=== PATIENT | female | born 1955 | race African-American/Black ===

== ENCOUNTER 2016-12-19 06:28 | Inpatient (IN) | payer OTHER ==
--- NOTE | ~2016-12-19 | HP ---
History And Physical [id number] [facility] [place]. [address] NAME: ZAHIRA GREENBERG : 51 STATUS : ADM IN [facility]#: [id number] AGE: 61 ADM/REG DATE : 12/19/16 MR#: [id number] REPORT SERV DATE: 12/19/16 DICTATED BY: PORSHA BECERRA DATE: 12/19/16 REPORT STATUS : Draft TRANSCRIBED BY: MODL DATE: 12/19/16 DATE OF ADMISSION: 12/19/2016 REASON FOR ADMISSION: Acute renal failure, MS, and cervical cord compression. HISTORY: This is a 61-year-old black female who has a history of MS since 2003 when she was first diagnosed. She grown up and lived in [place], [place], and moved down here in 2014. She is followed by Dr. Roma Finnegan, for her MS. She also had cervical spine arthritis and had been operated on several times for stenosis starting in 2001. She sees a neurosurgeon here Dr. Baltazar for her spinal stenosis. She came to the emergency room last week and had a creatinine of 0.97. She was given a Salazar catheter. Her cousin took it out after several days. She comes back now with a creatinine up to 4.82 and some difficulty emptying her bladder. She also complained of symptoms of increasing weakness in lower extremities, tingling and numbness in the thumb and index finger on the right side of her hands and also some numbness and tingling in the lateral fourth and fifth digits of both hands. She was seen initially by Dr. Luu in the emergency room. Apparently consult Neurology and started on 1 g of Solu-Medrol IV q.24 hours. I am asked to admit the patient to the hospital for possible MS flare. PAST MEDICAL HISTORY: She had a cervical cord injury and MRI does show compression of the cord at the C2-3 level. She had surgery at the C4-5 and C5-6 level as well. HOME MEDICATIONS: Include the following: Acetaminophen 650 mg q.8h p.r.n.; amantadine 100 mg p.o. b.i.d., though she is not sure why she is taking this; amlodipine 5 mg p.o. each morning; aspirin 81 mg p.o. daily; baclofen 10 mg p.o. b.i.d.; biotin one daily; diclofenac 1% gel, apply twice a day; furosemide 20 mg p.o. daily; potassium chloride 10 mEq p.o. daily; gabapentin 100 mg p.o. p.r.n.; multivitamins one a day; nitrofurantoin 100 mg p.o. b.i.d. for five days from her urologist; tramadol 50 mg three times a day as needed for pain; tramadol p.r.n. pain. ALLERGIES: NONE KNOWN. SOCIAL HISTORY: She has been twice to the same man and another time has been . Her previous name was Young and she intends to go back to this. She does not smoke, drink, or dip snuff. She goes to [facility] on [address] [place] [address]. 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 She has moved here with increasing disability since that time. She does not smoke or drink. She lives alone. She still walks unaided. She has moved from [facility] [address] [address] NAME: ZAHIRA GREENBERG : 51 STATUS : ADM IN [facility]#: [id number] AGE: 61 ADM/REG DATE : 12/19/16 MR#: [id number] REPORT SERV DATE: 12/19/16 DICTATED BY: PORSHA BECERRA DATE: 12/19/16 REPORT STATUS : Draft TRANSCRIBED BY: JOHNSON DATE: 12/19/16 [facility] [place] [address] [facility] FAMILY HISTORY: She had two brothers, one of kidney disease after being on hemodialysis and another who has heart disease. Her father of heart disease. Grandmother had heart disease. All of her cousins have diabetes. REVIEW OF SYSTEMS: She is having pain mostly in her feet, legs, and hand. She has no shortness of breath. No fever, chills, or night sweats. No melena, hematemesis, nausea, vomiting, or diarrhea. No fits, seizures, or convulsions. No unilateral weakness. She does have increasing weakness in lower extremities. She has swelling lower extremities. Remainder of the review of systems as above or is negative. PHYSICAL EXAMINATION: VITAL SIGNS: Blood pressure was 130/70 with a heart rate 72, respiratory rate 16, afebrile. HEENT: EOMI. Sclerae clear. Conjunctivae pale. NECK: No bruit without any JVD. CHEST: Clear A and P. HEART: Regular S1, S2 without murmur, gallop, or click. BREASTS: Grossly without mass. ABDOMEN: Soft, nontender. Bowel sounds positive. No HSM. EXTREMITIES: Have 3+ pitting edema on the left and 4+ on the right with pitting to the level of the thigh. NEUROLOGIC: She barely moves her feet to command. She does have sensory that is intact bilaterally. Facility Examiner is equal and symmetric bilaterally. There is no interosseous wasting of the hands. However, there is much edema of her feet and legs. DTRs are elicitable at the knees. Not the ankles bilaterally. SKIN: Without rash, ecchymosis, or bruising. LYMPHATICS: There is no adenopathy palpable. Neck is slightly stiffen. LABORATORY: Hemoglobin 11.3, hematocrit 32.6, white count 10.7, platelets 164,000. Sodium 138, potassium 4.5, chloride 100, CO2 of 22, BUN is 54, creatinine 4.82, and a glucose of 103. Her lactate level was 0.3. Calcium 8.3. Bilirubin shows alkaline phosphatase is slightly elevated 122. Other liver tests normal. Lipase is 8.4. The MRI scan of the cervical spine showed degenerative disk disease with evidence of fusion from L4-L6 and C2 mass effect from disk on the cord with evidence of compromise of the cord. ASSESSMENT: 1. Obstructive uropathy likely secondary to neurogenic bladder. 2. Neurogenic bladder likely secondary to multiple possibilities. 3. Cord injury, burst, at the C2-3 level versus multiple sclerosis causing weakness of lower extremities. 4. C6 radiculopathy, right side. 5. Acute renal failure secondary to obstructive uropathy. History And Physical [address] [place]. [address] NAME: ZAHIRA GREENBERG : 51 STATUS : ADM IN [facility]#: [id number] AGE: 61 ADM/REG DATE : 12/19/16 MR#: [id number] REPORT SERV DATE: 03/21/17 DICTATED BY: PORSHA BECERRA DATE: 12/19/16 REPORT STATUS : Draft TRANSCRIBED BY: MODL DATE: 12/19/16 6. Urinary tract infection with 182 white cells per high-powered field, treated with Macrobid. We will culture now. She is getting Rocephin IV now. 7. Multiple sclerosis diagnosed in [address] Roma Finnegan now with IV pulse dosing Solu-Medrol. We will get Neurology to see and see if we need to continuing this or sent for neurosurgical intervention. 8. Vision loss which is a sentinel symptom of her multiple sclerosis. She has had flare today and is complaining of vision loss or scotoma. 9. History of cervical spine surgery 2001, anterior approach with dysphagia since that time. 10.Frequent urinary tract infections in the past. She sees urologist now. PLAN: Admit IV fluid, Salazar decompression, watch the BMP. Neurology evaluation with possible neurosurgical intervention. Culture the urine, direct therapy more appropriately. POONAM/JOHNSON Porsha Becerra M.D. / [id number] CC: MD Gia Richards M.D. Sharon Farber, M.D.
--- NOTE | ~2016-12-19 | CN ---
Consultation Report [facility] [address] [place]. [address] NAME: ZAHIRA GREENBERG : 51 STATUS : ADM IN PAT#: [id number] AGE: 61 ADM/REG DATE : 12/19/16 MR#: [id number] REPORT SERV DATE: 12/19/16 DICTATED BY: DATE: REPORT STATUS : Draft TRANSCRIBED BY: MODL DATE: 12/19/16 NEUROLOGY CONSULTATION DATE OF CONSULTATION: 12/19/2016 REASON FOR CONSULT: Multiple sclerosis, weakness as well as C-spine compression. HISTORY OF PRESENT ILLNESS: This is a 61-year-old female with history of multiple sclerosis diagnosed in 2003, previously on Rebif for a few months. The patient has since not been on any MS modulating medications secondary to being unable to give herself injections. The patient reports over the past eie-ua-zqsxi days, the patient has had some chills as well as weakness in bilateral lower extremity with the patient noted to have altered sensation with tingling in fingers especially on the right fingers. The patient, in addition, was also noted to have vision abnormalities with the patient noted to have decreased vision in the left eye. The patient's symptoms again have been ongoing for the past 2 to 3 days with the patient baseline ambulating with a Rollator walker and wheelchair but recently is wheelchair bound and has difficulty moving bilateral lower extremities, right greater than left. The patient has seen Dr. Finnegan once but has not been on any disease-modifying therapy recently. The patient was in the emergency room for evaluation of urinary incontinence back in November 2016, has a Salazar catheter placed in and recently has a Salazar catheter removed afterwards, was noted to have difficulties with urination and has been experiencing some chills. No recent change in medication was otherwise noted. PAST MEDICAL HISTORY: Significant for cervical spine injury as well as history of multiple sclerosis diagnosed in 2003 with the patient previously on Rebif for a few months but unable to tolerate medication secondary to being unable to give herself injection. ALLERGIES: THE PATIENT REPORTS NO KNOWN DRUG ALLERGIES. SOCIAL HISTORY: Denies tobacco, alcohol, or recreational drug usage. FAMILY HISTORY: Significant for kidney disease on hemodialysis, heart disease as well as diabetes. HOME MEDICATIONS: At the time of evaluation, the patient's home medications consist of Tylenol; amantadine; Norvasc; aspirin; baclofen; biotin; Voltaren; Lasix; Neurontin; multivitamins; Macrobid; potassium; and Ultram. REVIEW OF SYSTEMS: Otherwise negative except for those mentioned in the HPI. PHYSICAL EXAMINATION: VITAL SIGNS: At the time of evaluation, the patient was noted to have vital signs with T- max of 101.0, heart rate of 113, respirations of 18 to 20, and blood pressure of 115 to 150 Consultation Report [address] [address] [id number] [facility] [place]. [address] NAME: ZAHIRA GREENBERG : 51 STATUS : ADM IN PAT#: [id number] AGE: 61 ADM/REG DATE : 12/19/16 MR#: [id number] REPORT SERV DATE: 12/19/16 DICTATED BY: DATE: REPORT STATUS : Draft TRANSCRIBED BY: JOHNSON DATE: 12/19/16 over 71 to 89. GENERAL: The patient is well developed, well nourished, in no acute distress. CARDIOVASCULAR: Regular rate and rhythm. No carotid bruits were otherwise auscultated. PULMONARY: Examination was clear to auscultation bilaterally. NEUROLOGICAL: Generally, the patient is alert and oriented to person, place, month, but not to year. She was noted to have intact registration, difficulties on recall. Mild dysarthria was noted. No aphasia was noted. The patient is able to follow simple commands at the time of evaluation with some mild difficulties with complex commands. Cranial nerves 2 through 12, pupils equal, round, and reactive to light. Horizontal eye movement was noted to be intact with the patient noted to have intact abjxx-fr-drkdxw response. The patient reports symmetrical facial sensation and decreased nasolabial fold on the left. Midline tongue. Normal palatal movement. Normal hearing. At the time of evaluation, the patient was noted to have 4/5 right upper extremity strength at the time of evaluation and 5/5 left upper extremity strength with the patient noted to have 0/5 right lower extremity proximal strength and 1/5 right lower extremity toe movement. The patient was noted to have 2/5 left lower extremity strength. Absent sensation in the left lower extremity with the patient noted to have some sensation in the right lower extremity. Reports symmetrical sensation in bilateral upper extremity. Mild ataxia in the right upper extremity at the time of evaluation. Normal fnkbdt-ex-zhmw examination in the left upper extremity. Hyperreflexia was noted. Outgoing toe on bilateral plantar reflexes. Gait was not evaluated secondary to weakness. The patient at baseline uses a combination of a Rollator walker as well as a wheelchair for ambulation purposes. LABORATORY STUDY: Demonstrates sodium 138, potassium 4.5, chloride 100, bicarb of 22, BUN of 54, creatinine of 4.82, glucose of 103, and calcium of 8.3. White blood cell count of 10.7, hemoglobin of 11.3, hematocrit of 32.6, and platelet count of 164. Urinalysis demonstrated large leukocyte esterase and negative nitrite. The patient otherwise underwent C-spine MRI which demonstrated disc protrusion with cord contact but does not appear to have severe compression in the C2-C3 level, otherwise abnormal signal was noted in the cervical spine, concerning for possible chronic myelopathy versus acute MS exacerbation. No contrast imaging was available for evaluation. IMPRESSION: 1. Weakness with worsening gait and vision changes as well as sensation change in the fingers especially in the right over the past ngp-lb-uhbnh days. The patient, in addition, was also noted to be febrile. In addition, the patient's concern for possible MS exacerbation was pseudo exacerbation secondary to infection especially given the patient's febrile fever upon hospital admission. We will check ammonia level, procalcitonin level as well as TSH, free T4, vitamin B12, folate level with morning labs. We will obtain PT/OT to evaluate and treat. Continue antibiotic therapy as per hospitalist. We will recommend on starting IV Solu-Medrol when the patient is otherwise afebrile. 2. Fever, concern for possible UTI. We will check procalcitonin level with morning labs. Antibiotic as per hospitalist. 3. Multiple sclerosis, concern for possible multiple sclerosis relapse or pseudo Consultation Report [address] [address] [id number] [facility] [place]. [address] NAME: ZAHIRA GREENBERG : 51 STATUS : ADM IN PAT#: [id number] AGE: 61 ADM/REG DATE : 12/19/16 MR#: [id number] REPORT SERV DATE: 12/19/16 DICTATED BY: DATE: REPORT STATUS : Draft TRANSCRIBED BY: MODL DATE: 12/19/16 exacerbation secondary to recent fever. We will check MRI of the brain as well as T- spine with and without contrast as well as repeat MRI of the C-spine with contrast for evaluation. Once the patient is afebrile, we are recommending starting Solu-Medrol therapy. We will obtain PT/OT to evaluate and treat. We will have the patient follow up outpatient with Dr. Finnegan for multiple sclerosis modulating therapy consideration. RECOMMENDATIONS: 1. MRI of the brain and T-spine with and without contrast. 2. MRI of the C-spine with contrast. 3. PT/OT. 4. Antibiotic as per hospitalist. 5. Serum ammonia, procalcitonin, TSH, free T4, vitamin B12, and folate with morning labs. 6. IV Solu-Medrol when the patient is afebrile. CCH/MODL Augusto Young MD / [id number] CC: Marco Gaspar M.D.
--- NOTE | ~2016-12-19 | DS ---
Discharge Summary [facility] [address] [place]. [address] NAME: ZAHIRA GREENBERG : 51 STATUS : DIS IN PAT#: [id number] AGE: 61 ADM/REG DATE : 12/19/16 MR#: [id number] REPORT SERV DATE: 12/28/16 DICTATED BY: HAIDER WEAVER DATE: 12/27/16 REPORT STATUS : Draft TRANSCRIBED BY: MODL DATE: 12/27/16 ADMISSION DATE: 12/19/2016 DISCHARGE DATE: 12/27/2016 DISCHARGE DIAGNOSES: 1. Exacerbation of multiple sclerosis. 2. Chronic cervical cord compression. 3. Urinary tract infection with Morganella morganii. 4. Bacteremia with Proteus mirabilis, likely source is urine. 5. Steroid-induced leukocytosis. CONSULTANTS: 1. Dr. Young of Neurology. 2. Dr. Sheldon of Orthopedic Surgery. HOSPITAL COURSE: This is a 61-year-old lady with a known history of multiple sclerosis, who was admitted to the hospital with complaints of urinary obstruction and multiple sclerosis exacerbation. For details, please refer to H and P by Dr. Lyons. Also, refer to interim discharge summary by Dr. Selvin Gorman. I assumed care of this patient on 12/25 and by then the patient was simply awaiting placement to a [facility]ci facility. The patient was approved at [facility] and she was discharged to [facility] facility today. Otherwise, I have nothing more to add to Dr. Selvin Gorman's interim discharge summary. Total of 40 minutes spent in coordinating this patient's discharge today. MARCO/JOHNSON Haider Weaver MD / [id number] CC: MD Gia Richards M.D.
--- NOTE | ~2016-12-19 | IDS ---
Interim Discharge Summary [facility] [address] [place]. [address] NAME: ZAHIRA GREENBERG : 51 STATUS : ADM IN [facility]#: [id number] AGE: 61 ADM/REG DATE : 12/19/16 MR#: [id number] REPORT SERV DATE: 12/25/16 DICTATED BY: KAREN CHARLES DATE: 12/25/16 REPORT STATUS : Draft TRANSCRIBED BY: MODL DATE: 12/25/16 ADMISSION DATE: 12/19/2016 DISCHARGE DATE: CURRENT HOSPITAL DIAGNOSES: 1. Multiple sclerosis. 2. Cervical cord compression, chronic. 3. Acute renal failure secondary to urinary tract infection and obstruction, resolved. 4. Urinary tract infection with bacteremia. 5. Lower-extremity edema, Lasix restarted. 6. Leukocytosis felt secondary to steroids. CONSULTATIONS: Neurology Dr. Young and Ortho Dr. Sheldon. PROCEDURES: 1. MRI of the cervical spine done on 12/19/2016 showing comparison to 08/2015 study defect of the cord at the C5 level is unchanged, evidence of prior fusion C4-C5, C5-C6, also had C2 herniation causing mild mass effect upon the cord, defects in the cord beginning in the medullary portion as described above. This could be attributed to chronic injury to the arterial supply of the cord, prior damage from defects to the cord or MS. 2. MRI of the lumbar spine done on the 12/24/2016 showing very minor degenerative disk disease L1-L5, S1 minimal loss of usual disk hydration, otherwise unremarkable MRI spine. 3. MRI of the thoracic done on 12/24/2016 showing unremarkable MRI of the spine. No significant disk disease. No dispose. No nerve root impingement. Multinodular appearance to enlarged thyroid isthmus and right lobe thyroid. Further characterization can be offered with dedicated thyroid ultrasound. CURRENT PHYSICAL FINDINGS AND HISTORY OF PRESENT ILLNESS: Please see the initial dictated H and P by Dr. Lyons. In brief, the patient is a 61-year-old female with above medical history, presented with complaints of urinary obstruction and MS exacerbation. Vital signs at the time of presentation, blood pressure was 150/89, average blood pressures have been in the 130s to 140s systolic. T-max was 101 on date of admission, subsequent T-max have been approximately 99.5 since. LABORATORY DATA: Admitting procalcitonin was 0.62 with subsequent 0.09, initial creatinine was 4.82 subsequent creatinine was 1.23 and most recently 0.96 on the 12/22/2016, ammonia was 23, lactate was 0.7. Initial white count was 10.7, subsequent white count was 16, 23 on 12/21/2016, 23 on the 12/22/2016, and 24 on the 12/24/2016, this was felt secondary to steroids. Urinalysis at time of admission showed greater than 182 rbcs, 107 wbcs, occasional bacteria. Microbiology cultures blood x2 showing Proteus. Urine culture x1 showing Morganella morganii. Interim Discharge Summary [address] [place]. [address] NAME: ZAHIRA GREENBERG : 51 STATUS : ADM IN [facility]#: [id number] AGE: 61 ADM/REG DATE : 12/19/16 MR#: [id number] REPORT SERV DATE: 12/25/16 DICTATED BY: KAREN CHARLES DATE: 12/25/16 REPORT STATUS : Draft TRANSCRIBED BY: JOHNSON DATE: 12/25/16 HOSPITAL COURSE: The patient was admitted with above complaints. Neurology was consulted given her findings. She was started on IV fluids. Given the renal insufficiency, Salazar catheter was placed. Neurology saw her the following day. MRI of the C-spine and brain were requested as well as PT and OT. I assumed her care on the . Serial lab was followed. Because of her initial renal insufficiency, Lovenox was changed to subcu heparin. Her previous MR done at [facility] was requested. She was then started on Solu-Medrol after the results of MRI were done 250 b.i.d. for three days. She was started on 11/22/2016 on Rocephin for the UTI and mild pain medications were given. When culture results came back per Pharmacy Infectious Disease, her antibiotics were changed to Zosyn starting on the 21/12/2016. IV fluids were discontinued as her renal function was markedly improved. Neurology continued to follow and transitioned her over to Medrol Dosepak starting on the 12/23/2016. She was also started on vitamin D supplementation. When I re-interviewed her on 12/23/2016, she was still complaining of edema and pain in her foot. X-ray was done. Diuretics were restarted. Followup procalcitonin was requested and Podiatry was requested for her toenails. It became clear from additional history that she had only seen urologist on one occasion for her incontinence and seemed to have symptoms of fecal incontinence. Neuro was reconsulted and [facility] was asked to see her. Additional imaging studies were done which has above-noted were negative. The patient continued to improve from her MS, continued to engage in PT and currently placement at [facility] is pending. Continue steroid taper. Continue antibiotics. Monitor WBC but again without fever, felt secondary to steroids. DISPOSITION: For rehab pending. TLF/MODL Karen Charles M.D. / [id number] CC: Marco Gaspar M.D.
--- NOTE | ~2016-12-19 | CN ---
Consultation Report [facility] [address] [place]. [address] NAME: ZAHIRA GREENBERG : 51 STATUS : ADM IN PAT#: [id number] AGE: 61 ADM/REG DATE : 12/19/16 MR#: [id number] REPORT SERV DATE: 12/24/16 DICTATED BY: EFRAIN JARRELL DATE: 12/24/16 REPORT STATUS : Draft TRANSCRIBED BY: MODL DATE: 12/24/16 CONSULTATION DATE OF CONSULTATION: REFERRING PHYSICIAN: Dr. Augusto Young. CHIEF COMPLAINT: Recent onset of neurologic worse deficit and lower extremity weakness. HISTORY OF PRESENT ILLNESS: 61-year-old very pleasant lady who has had a recent advancement of neurologic deficit particularly involving the lower extremities. The patient has had a long history of MS. She originally is from [place], [place], and did have an anterior cervical diskectomy and interbody fusion in 2001 for cervical disk degeneration C4-5 and C5- 6. She explicitly explained that this was not due to trauma, thus the patient did not have a cord contusion or any problems such as this as a part of her original surgery C4 to C6. She had good outcome from the original surgery and was doing well, but started having to use a cane several years ago, and then about three years ago, her overall weakness in lower extremities progressed to the point of needing a Rollator for ambulation. She then had an acute worsening of neurologic function mainly noted by waking up one morning noting that she had soiled the bed with stool. That very same day, she then had loss of urinary control, thus the original no loss of bowel or bladder was about a month ago. Then immediately soon afterwards, she started to notice some weakening, but she was actually ambulating with a rotator up until one week ago when she essentially lost function of her right lower extremity. She was able to actually put some weight on the right leg until a week ago. The left leg then has also weekend. She now has essentially useless motion of the lower extremities, and she has loss of bowel and bladder control. She has continued to do quite well with her upper extremities, although she has noted some slight decrease in strength on the right upper extremity. The patient has had no recent issues related to injury or trauma. She has had no symptoms of fever, chills, night sweats, or anything related to infection per se. I have reviewed the chart in its entirety. I have also reviewed the consult by the neurologist, and I have also examined the patient in its entirety which will be included. In addition, I reviewed the MRI of the cervical spine. I see in the orders that there is an MRI of the T-spine and L-spine that has been ordered, but I do not see those completed as yet. PHYSICAL EXAMINATION: GENERAL: She is alert, cooperative, well oriented. My neurologic exam matches that of the neurologist's completely, and I agree totally with the findings by the neurologist. There is a useless was Elías B type classification of the lower extremities. Her BUD score from a standpoint of scoring would be only 40/100. Consultation Report [facility] [id number] [place]. [address] NAME: ZAHIRA GREENBERG : 51 STATUS : ADM IN PAT#: [id number] AGE: 61 ADM/REG DATE : 12/19/16 MR#: [id number] REPORT SERV DATE: 12/24/16 DICTATED BY: EFRAIN JARRELL DATE: 12/24/16 REPORT STATUS : Draft TRANSCRIBED BY: JOHNSON DATE: 12/24/16 IMAGING: I have reviewed the MRI in particular, there is a small to moderate-sized central disk herniation. I do not believe this is a large herniation as described by the radiologist. It just barely touches the anterior aspect of the thecal sac, and there was no deformity of the cord itself and no effect on the cord at the C2-3 level. The MRI does show a previous diskectomy and fusion at C4-5 and 5-6, and there is some osteophyte which has some slight indentation of the thecal sac at C4-5, but this would be long-standing and would not have any effect on recent changes. 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 ASSESSMENT: 1. 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 2. Previous ACDF for nontraumatic causes with a small residual osteophyte C4-5 and C5-6, again not likely to be causing any recent neurologic changes. RECOMMENDATIONS: At this time, I do not see the patient being a surgical candidate. I have discussed this with Dr. Figueroa, the neurologist, and this time we will continue with medical management. Happy to assist at any time. Of note, the patient has seen Dr. Baltazar, a neurosurgeon at [place], for a nerve conduction study proven carpal tunnel problem on the right. He did not advise surgery. The patient is asked for a second opinion. I will ask Dr. Kahlil Walsh, my hand surgery partner, to evaluate and give a second opinion. KARI/JOHNSON Efrain Jarrell D.O. / [id number] CC: Marco Gaspar M.D.
[2016-12-19 07:02] LABS: BASOPHILS 0.1 %; BASOPHILS ABSOLUTE 0.01 10/3/uL (0.0-0.16); EOSINOPHILS 0.6 %; EOSINOPHILS ABSOLUTE 0.06 10/3/uL (0.0-0.53); ER CBC TAT 0 Hrs 05 Mins; HEMATOCRIT 32.6 % (36.0-48.0); HEMOGLOBIN 11.3 g/dL (12.0-16.0); IMMATURE GRANULOCYTES 0.6 %; IMMATURE GRANULOCYTES ABSOLUTE 0.06 10/3/uL (0.0-0.11); LYMPHOCYTES 5.2 %; LYMPHOCYTES ABSOLUTE 0.55 10/3/uL (0.67-4.30); MEAN CORPUS HGB CONC 34.7 g/dL (32.0-36.0); MEAN CORPUSCULAR HEMOGLOB 29.7 pg (26.0-34.0); MEAN CORPUSCULAR VOLUME 85.8 fL (80-100); MONOCYTES 9.9 %; MONOCYTES ABSOLUTE 1.06 10/3/uL (0.21-1.20); NEUTROPHILS 83.6 %; NEUTROPHILS ABSOLUTE 8.93 10/3/uL (2.02-8.40); RBC DISTRIBUTION WIDTH 14.9 % (12.0-16.0); WHITE BLOOD CELLS 10.7 10/3/uL (4.5-10.5)
[2016-12-19 07:04] LABS: MANUAL DIFF NO %; PLATELET COUNT 164 10/3/uL (150-400)
[2016-12-19 07:19] LABS: A/G RATIO 0.6 (0.7-1.9); ALBUMIN 3.2 G/DL (3.5-5.0); CALCIUM, SERUM 8.3 MG/DL (8.5-10.4); CHLORIDE, SERUM 100 MMOL/L (96-112); SGPT(ALT) 31 U/L (5-65); TOTAL PROTEIN 8.2 G/DL (6.0-8.5)
[2016-12-19 07:20] LABS: LACTATE 0.7 MMOL/L (0.3-2.4)
[2016-12-19 07:22] LABS: SODIUM, SERUM 138 MMOL/L (135-148)
[2016-12-19 07:23] LABS: ALKALINE PHOSPHATASE 122 U/L (45-117); BUN (BLOOD UREA NITROGEN) 54 MG/DL (6-23); CO2 (CARBON DIOXIDE) 22 MMOL/L (24-34); CREATININE 4.82 MG/DL (0.55-1.02); GFR AFRICAN AMERICAN 10 ML/MIN (>=60); GFR NON AFRICAN AMERICAN 9 ML/MIN (>=60); GLUCOSE, SERUM 103 MG/DL (60-99); POTASSIUM, SERUM 4.5 MMOL/L (3.5-5.3); SGOT(AST) 26 U/L (5-40); TOTAL BILIRUBIN 0.5 MG/DL (0-1.2)
[2016-12-19] MEDS ORDERED: L20 PO (09:06)
[2016-12-19] MEDS ORDERED: NORV5 PO (09:06)
[2016-12-19] MEDS ORDERED: KLOR-CON 1010 MEQ PO (09:07)
[2016-12-19] MEDS ORDERED: MACROBID PO (09:09)
[2016-12-19] MEDS ORDERED: ULTRAM50 PO ×2 (09:10)
[2016-12-19] MEDS ORDERED: 8 HOUR650 MG PO (09:11)
[2016-12-19] MEDS ORDERED: LIOR10 PO (09:13)
[2016-12-19] MEDS ORDERED: SYMM100 PO (09:15)
[2016-12-19] MEDS ORDERED: VOLTAREN1 % TOP (09:17)
[2016-12-19] MEDS ORDERED: NEUR100 PO (09:18)
[2016-12-19] MEDS ORDERED: ASAB PO (09:19)
[2016-12-19 09:20] LABS: WBC (NOT ORDERED) (RFLEX) 107 (0-5)
[2016-12-19] MEDS ORDERED: HARD NAILS PO (09:20)
[2016-12-19] MEDS ORDERED: MULTIVIT/MIN PO (09:20)
[2016-12-19 09:33] LABS: ASCORBIC ACID (UR NOT ORDER) NEG (NEG); BILIRUBIN, URINE NEGATIVE (NEG); ER URINALYSIS TAT 0 Hrs 26 Mins; KETONE, URINE NEGATIVE (NEG); LEUKOCYTE ESTERASE(NOT OR LARGE (NEG); NITRITE (URINE) NEG (NEG)
[2016-12-20 05:33] LABS: FREE T4 1.09 NG/DL (0.76-1.46); ULTRASENSITIVE TSH 0.058 MCIU/ML (0.358-3.740)
[2016-12-20 05:37] LABS: FOLATE 12.8 NG/ML (>5.2)
[2016-12-20 05:55] LABS: PROCALCITONIN 0.62 ng/mL (<0.5)
[2016-12-20 08:58] LABS: BASOPHILS 0.1 %; BASOPHILS ABSOLUTE 0.01 10/3/uL (0.0-0.16); EOSINOPHILS 0 %; HEMOGLOBIN 10.2 g/dL (12.0-16.0); IMMATURE GRANULOCYTES 1.3 %; IMMATURE GRANULOCYTES ABSOLUTE 0.21 10/3/uL (0.0-0.11); LYMPHOCYTES 7.3 %; LYMPHOCYTES ABSOLUTE 1.17 10/3/uL (0.67-4.30); MANUAL DIFF NO %; MEAN CORPUSCULAR HEMOGLOB 29.8 pg (26.0-34.0); MEAN CORPUSCULAR VOLUME 87.7 fL (80-100); MEAN PLATELET VOLUME 9.7 fL (9.2-13.0); MONOCYTES 6.8 %; MONOCYTES ABSOLUTE 1.08 10/3/uL (0.21-1.20); NEUTROPHILS 84.5 %; NEUTROPHILS ABSOLUTE 13.49 10/3/uL (2.02-8.40); PLATELET COUNT 166 10/3/uL (150-400); RBC DISTRIBUTION WIDTH 14.6 % (12.0-16.0); RED CELL COUNT 3.42 10/6/uL (4.0-5.6)
[2016-12-20 09:10] LABS: CALCIUM, SERUM 8.1 MG/DL (8.5-10.4); CHLORIDE, SERUM 108 MMOL/L (96-112); CO2 (CARBON DIOXIDE) 25 MMOL/L (24-34); POTASSIUM, SERUM 3.7 MMOL/L (3.5-5.3); SODIUM, SERUM 144 MMOL/L (135-148)
[2016-12-20 09:11] LABS: BUN (BLOOD UREA NITROGEN) 31 MG/DL (6-23); CREATININE 1.23 MG/DL (0.55-1.02); GFR AFRICAN AMERICAN 54 ML/MIN (>=60); GFR NON AFRICAN AMERICAN 47 ML/MIN (>=60); GLUCOSE, SERUM 178 MG/DL (60-99)
[2016-12-21 11:52] LABS: HEMATOCRIT 31.2 % (36.0-48.0); HEMOGLOBIN 10.5 g/dL (12.0-16.0); MEAN CORPUS HGB CONC 33.7 g/dL (32.0-36.0); MEAN CORPUSCULAR HEMOGLOB 29.8 pg (26.0-34.0); MEAN CORPUSCULAR VOLUME 88.6 fL (80-100); MEAN PLATELET VOLUME 9.7 fL (9.2-13.0); PLATELET COUNT 190 10/3/uL (150-400); RBC DISTRIBUTION WIDTH 14.6 % (12.0-16.0); RED CELL COUNT 3.52 10/6/uL (4.0-5.6)
[2016-12-21 11:56] LABS: MANUAL DIFF YES %
[2016-12-21 12:05] LABS: BUN (BLOOD UREA NITROGEN) 26 MG/DL (6-23); CALCIUM, SERUM 7.9 MG/DL (8.5-10.4); CHLORIDE, SERUM 105 MMOL/L (96-112); CO2 (CARBON DIOXIDE) 24 MMOL/L (24-34); CREATININE 0.92 MG/DL (0.55-1.02); GFR AFRICAN AMERICAN 77 ML/MIN (>=60); GFR NON AFRICAN AMERICAN 66 ML/MIN (>=60); GLUCOSE, SERUM 192 MG/DL (60-99); POTASSIUM, SERUM 3.6 MMOL/L (3.5-5.3); SODIUM, SERUM 140 MMOL/L (135-148)
[2016-12-21 12:14] LABS: BAND NEUTROPHILS 3 %; IMMATURE GRANS ABSOLUTE (CALC) 0.23 10/3/uL (0.0-0.11); LYMPHOCYTES 5 %; LYMPHOCYTES ABSOLUTE (CALC) 1.15 10/3/uL (0.67-4.30); METAMYELOCYTES 1 %; MONOCYTES 5 %; MONOCYTES ABSOLUTE (CALC) 1.15 10/3/uL (0.21-1.20); NEUTROPHILS ABSOLUTE (CALC) 20.47 10/3/uL (2.02-8.40); PLATELET ESTIMATE ADQ (ADEQUATE); SEGMENTED NEUTROPHIL (0) 86 %; TOTAL NUCLEATED CELLS 100
[2016-12-22 12:57] LABS: HEMATOCRIT 31.9 % (36.0-48.0); HEMOGLOBIN 10.8 g/dL (12.0-16.0); MEAN CORPUS HGB CONC 33.9 g/dL (32.0-36.0); MEAN CORPUSCULAR HEMOGLOB 29.9 pg (26.0-34.0); MEAN CORPUSCULAR VOLUME 88.4 fL (80-100); MEAN PLATELET VOLUME 9.8 fL (9.2-13.0); NUCLEATED RED BLOOD CELLS 0.2 /100WBC (0-0); PLATELET COUNT 218 10/3/uL (150-400); RBC DISTRIBUTION WIDTH 14.3 % (12.0-16.0); RED CELL COUNT 3.61 10/6/uL (4.0-5.6); WHITE BLOOD CELLS 23.2 10/3/uL (4.5-10.5)
[2016-12-22 12:58] LABS: MANUAL DIFF YES %
[2016-12-22 13:10] LABS: BUN (BLOOD UREA NITROGEN) 29 MG/DL (6-23); CALCIUM, SERUM 7.6 MG/DL (8.5-10.4); CHLORIDE, SERUM 105 MMOL/L (96-112); CO2 (CARBON DIOXIDE) 24 MMOL/L (24-34); CREATININE 0.96 MG/DL (0.55-1.02); GFR AFRICAN AMERICAN 73 ML/MIN (>=60); GFR NON AFRICAN AMERICAN 63 ML/MIN (>=60); GLUCOSE, SERUM 137 MG/DL (60-99); POTASSIUM, SERUM 3.5 MMOL/L (3.5-5.3); SODIUM, SERUM 141 MMOL/L (135-148)
[2016-12-22 13:33] LABS: BAND NEUTROPHILS 7 %; IMMATURE GRANS ABSOLUTE (CALC) 1.16 10/3/uL (0.0-0.11); LYMPHOCYTES 10 %; LYMPHOCYTES ABSOLUTE (CALC) 2.32 10/3/uL (0.67-4.30); METAMYELOCYTES 5 %; MONOCYTES 6 %; MONOCYTES ABSOLUTE (CALC) 1.39 10/3/uL (0.21-1.20); NEUTROPHILS ABSOLUTE (CALC) 18.33 10/3/uL (2.02-8.40); PLATELET ESTIMATE ADQ (ADEQUATE); RBC MORPHOLOGY NORM (NORMAL); SEGMENTED NEUTROPHIL (0) 72 %; TOTAL NUCLEATED CELLS 100
[2016-12-24 04:47] LABS: HEMATOCRIT 31.9 % (36.0-48.0); HEMOGLOBIN 10.9 g/dL (12.0-16.0); MEAN CORPUS HGB CONC 34.2 g/dL (32.0-36.0); MEAN CORPUSCULAR HEMOGLOB 29.7 pg (26.0-34.0); MEAN CORPUSCULAR VOLUME 86.9 fL (80-100); MEAN PLATELET VOLUME 9.7 fL (9.2-13.0); PLATELET COUNT 253 10/3/uL (150-400); RBC DISTRIBUTION WIDTH 14.5 % (12.0-16.0); RED CELL COUNT 3.67 10/6/uL (4.0-5.6); WHITE BLOOD CELLS 24.2 10/3/uL (4.5-10.5)
[2016-12-24 05:07] LABS: MANUAL DIFF YES %
[2016-12-24 05:29] LABS: BAND NEUTROPHILS 3 %; IMMATURE GRANS ABSOLUTE (CALC) 1.69 10/3/uL (0.0-0.11); LYMPHOCYTES 5 %; LYMPHOCYTES ABSOLUTE (CALC) 0.48 10/3/uL (0.67-4.30); METAMYELOCYTES 5 %; MONOCYTES 6 %; MONOCYTES ABSOLUTE (CALC) 1.45 10/3/uL (0.21-1.20); MYELOCYTES 1 %; NEUTROPHILS ABSOLUTE (CALC) 20.57 10/3/uL (2.02-8.40); PLATELET ESTIMATE ADQ (ADEQUATE); RBC MORPHOLOGY NORM (NORMAL); SEGMENTED NEUTROPHIL (0) 80 %; TOTAL NUCLEATED CELLS 100
== END 2016-12-27 13:29 | disposition home or self-care (01) | DRG 59 ==
LOC: ER 06:28 → 4SO 10:53
PROVIDERS: Internal Medicine; Nurse Practitioner; Psychiatry & Neurology Neurology; Specialist
DX: G35 Multiple sclerosis (principal); N39.0 Urinary tract infection, site not specified; N17.9 Acute kidney failure, unspecified; G95.20 Unspecified cord compression; N13.9 Obstructive and reflux uropathy, unspecified; B96.89 Other specified bacterial agents as the cause of diseases classified elsewhere; F32.9 Major depressive disorder, single episode, unspecified
CPT/HCPCS: 71010; 72141; 72157; 72158; 73560-RT; 73630-RT; 80048; 80053; 81001; 82140; 82306; 82607; 82746; 83605; 83690; 84145; 84439; 84443; 85025; 85610; 85730; 87040; 87077; 87086; 87150; 87186; 96365; 96375; 97110-GO; 97110-GP; 97162-GP; 97165-GO; 97530-GP; 99291; A9270-GY; A9577; J2405; J2543; J2930